=== PATIENT | male | born 1975 ===

== ENCOUNTER 2018-08-26 21:49 | Emergency (ER) | payer SELFPAY ==
[~2018-08-26] VITALS: Ht 182.9 cm; Wt 86.4 kg
[2018-08-26 22:21] VITALS: BP 155/102
== END 2018-08-26 22:50 | disposition home or self-care (01) ==
LOC: ER 21:50
DX: F10.129 Alcohol abuse with intoxication, unspecified (principal); Z02.89 Encounter for other administrative examinations; Y90.9 Presence of alcohol in blood, level not specified
CPT/HCPCS: 99283